=== PATIENT | male | born 1995 | race Caucasian/White ===

== ENCOUNTER 2019-02-08 23:10 | Emergency (ER) | payer SELFPAY ==
[~2019-02-08] VITALS: Ht 170.2 cm; Wt 78.0 kg
--- NOTE | 2019-02-08 23:30 | NUR ---
PT AMBULATORY TO ER BED 10.
[2019-02-08 23:33] VITALS: BP 138/60
--- NOTE | 2019-02-08 23:35 | NUR ---
bib self reports headache and dizziness, no changes in vision. no s/s of stroke. perrl. ERMD made aware.
[2019-02-08] MEDS ORDERED: KETOROLAC 60 MG/2 ML VIAL IM ONE (23:50)
[2019-02-08] MEDS ORDERED: MECLIZINE 25 MG TAB PO ONE (23:50)
[2019-02-09 01:00] VITALS: BP 132/62
== END 2019-02-09 01:00 | disposition home or self-care (01) ==
LOC: MED 23:10
DX: R51 Headache (principal)
CPT/HCPCS: 96372; 99283; J1885; J8597